=== PATIENT | female | born 1995 | race Two or more races ===

== ENCOUNTER 2019-02-03 21:09 | Observation (INO) | payer OTHER | END 2019-02-03 21:50 | disposition home or self-care (01) | DRG 565 | LOC: LDRP 21:09 | PROVIDERS: ADMIT Specialist; ATTEND Specialist | DX: O47.9 False labor, unspecified (principal); Z3A.36 36 weeks gestation of pregnancy | CPT/HCPCS: 59025; 81002; G0378 ==

== ENCOUNTER 2019-02-14 21:15 | Observation (INO) | payer OTHER | END 2019-02-14 21:50 | disposition home or self-care (01) | DRG 565 | LOC: LDRP 21:15 | PROVIDERS: ADMIT Specialist; ATTEND Specialist | DX: O47.9 False labor, unspecified (principal); Z3A.37 37 weeks gestation of pregnancy | CPT/HCPCS: 59025; 81002; G0378 ==

== ENCOUNTER 2019-03-21 21:33 | Emergency (ER) | payer OTHER ==
[~2019-03-21] VITALS: Ht 154.9 cm; Wt 73.0 kg
[2019-03-21] MEDS ORDERED: ACETAMINOPHEN 325 MG TAB PO ONE ×2 (21:58→22:01)
[2019-03-21 22:42] LABS: Basophils # (auto) 0.1 uL; Basophils % (auto) 1.4 % (0.0-2.0); Eosinophils # (auto) 0.1 uL; Eosinophils % (auto) 1.3 % (0.0-7.0); Hematocrit 44.8 % (36.0-46.0); Hemoglobin 14.9 g/dL (12.2-16.2); Lymphocytes # (auto) 1.3 uL; Lymphocytes % (auto) 12.5 % (10.0-50.0); Mean Corpuscular Hemoglobin 28.6 pg (28.0-32.0); Mean Corpuscular Hgb Conc. 33.3 g/dL (32.0-36.0); Mean Corpuscular Volume 85.9 fL (80.0-100.0); Monocytes # (auto) 0.7 uL; Monocytes % (auto) 6.4 % (0.0-12.0); Neutrophils % (auto) 78.4 % (37.0-80.0); Platelet Count (auto) 245 10^3/uL (140-450); Red Blood Cells 5.21 10^6/uL (4.0-5.20); White Blood Cell 10.1 10^3/uL (4.4-10.8)
[2019-03-21 23:01] LABS: Albumin 3.5 g/dL (3.4-5.0); Anion Gap 8 (5-15); BUN/Creatinine Ratio 20.3; Blood Urea Nitrogen 16 mg/dL (7-18); Calcium 8.8 mg/dL (8.5-10.1); Carbon Dioxide 25 mmol/L (21-32); Chloride 104 mmol/L (98-107); GFR African American 115 mL/min; GFR Non-African American 95 mL/min; Glucose 104 mg/dL (74-106); Potassium 3.8 mmol/L (3.5-5.1); Sodium 137 mmol/L (136-145)
[2019-03-21 23:07] LABS: Alanine Aminotransferase 30 U/L (13-56); Alkaline Phosphatase 90 U/L (45-117); Aspartate Aminotransferase 21 U/L (15-37); Bilirubin, Total 0.5 mg/dL (0.2-1.0); Total Protein 8.1 g/dL (6.4-8.2)
[2019-03-21 23:44] LABS: Urine Bacteria FEW /hpf (None Seen); Urine Blood Negative /uL (Negative); Urine Specific Gravity 1.004 (1.001-1.035); Urine WBC 8 /hpf (0 - 5)
[2019-03-22] MEDS ORDERED: SODIUM CHLORIDE 0.9% 1,000 ML IV ONE (00:39)
[2019-03-22] MEDS ORDERED: cefTRIAXone 1GM/50ML D5W 50 ML IV ONE (00:45)
[2019-03-22] MEDS ORDERED: SODIUM CHLORIDE 0.9% 500 ML IV ONE (03:36)
[2019-03-22 04:51] VITALS: BP 104/59
== END 2019-03-22 05:43 | disposition home or self-care (01) ==
LOC: ER 21:33
DX: N39.0 Urinary tract infection, site not specified (principal)
CPT/HCPCS: 36415; 71045; 76856; 80053; 81001; 83605; 83880; 84484; 84702; 85025; 87086; 93005; 94761; 96365; 99284; J0696; J7030